=== PATIENT | male | born 1960 | race African-American/Black ===

== ENCOUNTER 2018-07-21 14:47 | Emergency (ER) | payer MEDICAID ==
[~2018-07-21] VITALS: Ht 172.7 cm; Wt 87.4 kg
[2018-07-21] MEDS ORDERED: ALBUTEROL (0.083%) 2.5MG/3ML NEB HHN STA (15:19)
[2018-07-21] MEDS ORDERED: IPRATROPIUM BROMIDE (0.02%) 0.5MG/2.5ML NEB HHN STA (15:19)
[2018-07-21] MEDS ORDERED: METHYLPREDNISOLONE SOD SUCC 125 MG/2 ML VIAL IV STA (15:19)
[2018-07-21 15:46] LABS: CHLORIDE 95 mEq/L (98-107)
[2018-07-21 15:49] LABS: ETHANOL BLOOD < 10 mg/dL; INR 1.1; PARTIAL THROMBOPLASTIN TIME 33.6 sec (23.4-31.0); PROTHROMBIN TIME 10.9 sec (9.1-11.1)
[2018-07-21 15:52] LABS: EOSINOPHILS % 2.2 % (0.0-5.0); HEMATOCRIT. 43.5 % (42.0-52.0); HEMOGLOBIN. 14.8 g/dL (14.0-18.0); LYMPHOCYTES % 23.7 % (20.0-50.0); MEAN CORPUSCULAR HEMOGLOBIN 30.6 pg (28.0-32.0); MEAN CORPUSCULAR VOLUME 89.9 fL (80.0-94.0); MONOCYTES % 10.9 % (2.0-8.0); NEUTROPHILS % 62.2 % (40.0-76.0); PLATELET 158 x1000/uL (130-400); RED BLOOD CELL COUNT 4.84 mill/uL (4.7-6.1); RED CELL DISTRIBUTION WIDTH 13.9 % (11.6-14.6)
[2018-07-21 15:53] LABS: LDL CHOLESTEROL 102 mg/dL (5-100)
[2018-07-21] MEDS ORDERED: IOHEXOL-350 100 ML BOTTLE ONE (16:19)
[2018-07-21] MEDS ORDERED: ASPIRIN 325MG EC TABLET PO ONE (17:15)
[2018-07-21] MEDS ORDERED: POTASSIUM CHLORIDE 20MEQ TABLET SR PO ONE (17:45)
[2018-07-21] MEDS ORDERED: DILTIAZEM HCL 5MG/ML 5ML VIAL IV ONE (18:15)
[2018-07-21] MEDS ORDERED: DILTIAZEM HCL 60MG TABLET PO ONE (18:45)
[2018-07-21] MEDS ORDERED: DILTIAZEM HCL 125 MG in DEXT 5% WATER 100 ML IV ONE (20:00)
[2018-07-21 20:04] VITALS: BP 124/80
[2018-07-21] MEDS ORDERED: DILTIAZEM HCL 125 MG in DEXT 5% WATER 100 ML IV SCH (20:30)
[2018-08-02] MEDS ORDERED: APIX5TAB PO (13:39)
[2018-08-02] MEDS ORDERED: DILT30TA38 PO (13:39)
== END 2018-07-21 20:48 | disposition short-term general hospital (02) ==
LOC: ER 14:47
DX: I63.9 Cerebral infarction, unspecified (principal); I48.91 Unspecified atrial fibrillation; J45.901 Unspecified asthma with (acute) exacerbation; I10 Essential (primary) hypertension; F17.210 Nicotine dependence, cigarettes, uncomplicated
CPT/HCPCS: 36415; 70450; 70496; 70498; 71045; 80053; 80320; 82962; 83721; 84484; 85025; 85610; 85730; 93005; 94644; 96374; 96375; 99291; J2930; J3490; J7060; J7611; Q9967; G0480

== ENCOUNTER 2018-07-25 05:47 | Inpatient (IN) | payer MEDICAID ==
[~2018-07-25] VITALS: Ht 173.5 cm; Wt 85.0 kg
[2018-07-25] MEDS ORDERED: ONDANSETRON HCL 4MG/2ML INJ IV STA (06:31)
[2018-07-25] MEDS ORDERED: MORPHINE SULFATE 4 MG/ML CPJ (NOT FOR IM USE) IV STA (06:31)
[2018-07-25] MEDS ORDERED: NITROGLYCERIN OINT 1GM/INCH UDPKT TD ONE (06:45)
[2018-07-25] MEDS ORDERED: ASPIRIN 81MG TABLET PO ONE (06:45)
[2018-07-25 06:56] LABS: HEMATOCRIT. 33.1 % (42.0-52.0); HEMOGLOBIN. 10.9 g/dL (14.0-18.0); MEAN CORPUSCULAR HEMOGLOBIN 29.8 pg (28.0-32.0); MEAN CORPUSCULAR VOLUME 90.1 fL (80.0-94.0); MEAN PLATELET VOLUME 8.9 fl (7.4-10.4); PLATELET 270 x1000/uL (130-400); RED BLOOD CELL COUNT 3.67 mill/uL (4.7-6.1); RED CELL DISTRIBUTION WIDTH 13.7 % (11.6-14.6)
[2018-07-25 07:00] LABS: CHLORIDE 97 mEq/L (98-107)
[2018-07-25 07:04] LABS: INR 1.3; PARTIAL THROMBOPLASTIN TIME 35.7 sec (23.4-31.0); PROTHROMBIN TIME 12.7 sec (9.1-11.1)
[2018-07-25 07:05] LABS: ETHANOL BLOOD < 10 mg/dL
[2018-07-25 08:03] LABS: PLATELET ESTIMATE NORMAL
[2018-07-25 11:44] LABS: CLARITY URINE CLOUDY (CLEAR); COLOR URINE DARK YELLOW (YELLOW); KETONES URINE TRACE (NEGATIVE); LEUKOCYTE ESTERASE URINE 1+ (NEGATIVE); NITRITE URINE NEGATIVE (NEGATIVE); OCCULT BLOOD URINE NEGATIVE (NEGATIVE); PROTEIN URINE NEGATIVE (NEGATIVE); SPECIFIC GRAVITY URINE 1.018 (1.005-1.030)
[2018-07-25 11:58] LABS: *AMPHETAMINES SCREEN URINE NEGATIVE (NEGATIVE); *BARBITURATES SCREEN URINE NEGATIVE (NEGATIVE); *BENZODIAZEPINES SCREEN URINE NEGATIVE (NEGATIVE); *COCAINE SCREEN URINE NEGATIVE (NEGATIVE)
[2018-07-25 11:59] LABS: CANNABINOID URINE SCREEN PRESUMTIVE POSITIVE (NEGATIVE); METHADONE URINE SCREEN NEGATIVE (NEGATIVE); OPIATES URINE SCREEN PRESUMTIVE POSITIVE (NEGATIVE); PHENCYCLIDINE URINE SCREEN NEGATIVE (NEGATIVE)
[2018-07-25] MEDS ORDERED: IOHEXOL-350 100 ML BOTTLE ONE ×2 (17:50→20:00)
[2018-07-25] MEDS ORDERED: DIPHENHYDRAMINE 50MG/ML VIAL IV PRN (18:00)
[2018-07-25] MEDS ORDERED: IPRATROPIUM/ALBUTEROL 0.5-3(2.5)MG/3ML NEB INH PRN (18:00)
[2018-07-25] MEDS ORDERED: PIPERACILLIN/TAZ 3.375G PREMIX 50 ML IV NR (18:15)
[2018-07-25] MEDS: DEXT 5%/LACTATED RINGERS 1,000 ML IV SCH (18:21)
[2018-07-25] MEDS ORDERED: DIATR MEGLU/DIATRIZOATE SOLN 120ML ONE (18:40)
[2018-07-25] MEDS: ONDANSETRON HCL 4MG/2ML INJ IV PRN (18:54)
[2018-07-25] MEDS ORDERED: PANTOPRAZOLE SODIUM 40 MG/VIAL IV NR (19:15)
[2018-07-25] MEDS: IPRATROPIUM/ALBUTEROL 0.5-3(2.5)MG/3ML NEB INH SCH (21:10)
[2018-07-25 23:20] LABS: CREATINE KINASE 48 IU/L (39-308)
[2018-07-25 23:21] LABS: CREATINE KINASE MB FRACTION < 1.0 ng/mL (0.5-3.6)
[2018-07-25 23:30] VITALS: BP 144/72
[2018-07-25] MEDS: SODIUM CHLORIDE 0.9% INJ 3ML FLUSH IVF SCH (23:56)
[2018-07-26] VITALS (20 sets, daily range): BP systolic 98–166; BP diastolic 51–78
[2018-07-26] MEDS: DEXT 5%/LACTATED RINGERS 1,000 ML IV SCH ×4 (01:23→20:40)
[2018-07-26] MEDS: PIPERACILLIN/TAZ 3.375G PREMIX 50 ML IV SCH ×3 (01:23→17:11)
[2018-07-26] MEDS: SODIUM CHLORIDE 0.9% INJ 3ML FLUSH IVF SCH ×3 (06:40→22:30)
[2018-07-26 07:10] LABS: CREATINE KINASE 45 IU/L (39-308)
[2018-07-26 07:11] LABS: CREATINE KINASE MB FRACTION < 1.0 ng/mL (0.5-3.6)
[2018-07-26 07:35] LABS: BASOPHILS % 0.6 % (0.0-2.0); CHLORIDE 97 mEq/L (98-107); EOSINOPHILS % 1.7 % (0.0-5.0); HEMATOCRIT. 24.7 % (42.0-52.0); HEMOGLOBIN. 8.3 g/dL (14.0-18.0); LYMPHOCYTES % 15.5 % (20.0-50.0); MEAN CORPUSCULAR HEMOGLOBIN 30.2 pg (28.0-32.0); MEAN CORPUSCULAR VOLUME 89.5 fL (80.0-94.0); MEAN PLATELET VOLUME 8.8 fl (7.4-10.4); NEUTROPHILS % 74.2 % (40.0-76.0); PLATELET 236 x1000/uL (130-400); RED BLOOD CELL COUNT 2.76 mill/uL (4.7-6.1); RED CELL DISTRIBUTION WIDTH 13.8 % (11.6-14.6)
[2018-07-26] MEDS: PANTOPRAZOLE SODIUM 40 MG/VIAL IV SCH (09:01)
[2018-07-26 09:29] LABS: INR 1.1; PROTHROMBIN TIME 11.4 sec (9.1-11.1)
[2018-07-26] MEDS ORDERED: POTASSIUM CHLORIDE INJ 40 MEQ in DEXT 5% WATER 250 ML IV NR (09:30)
[2018-07-26] MEDS ORDERED: FENTANYL CITRATE/PF 50MCG/ML 2ML VIAL ONE (11:05)
[2018-07-26] MEDS ORDERED: LIDOCAINE HCL 1% 20ML VIAL (Pyxis) INJ ONE (11:07)
[2018-07-26] MEDS ORDERED: SODIUM BICARBONATE 4% (2.4MEQ) 5ML VIAL IV ONE (11:08)
[2018-07-26] MEDS ORDERED: FENTANYL CITRATE/PF 50MCG/ML 2ML VIAL IV NR (11:10)
[2018-07-26] MEDS ORDERED: FENTANYL CITRATE/PF 50MCG/ML 2ML VIAL IV ONE (11:20)
[2018-07-26] MEDS ORDERED: MORPHINE SULFATE 4 MG/ML CPJ (NOT FOR IM USE) IV PRN (12:00)
[2018-07-26] MEDS ORDERED: ONDANSETRON HCL 4MG/2ML INJ IV PRN (12:00)
[2018-07-26] MEDS: FAMOTIDINE 20MG/2ML VIAL IV SCH (12:59)
[2018-07-26] MEDS: IPRATROPIUM/ALBUTEROL 0.5-3(2.5)MG/3ML NEB INH SCH ×3 (14:37→20:30)
[2018-07-26] MEDS: NICOTINE 14MG PATCH TD SCH (15:17)
[2018-07-26 22:07] LABS: HEMATOCRIT 25.1 % (42.0-52.0); HEMOGLOBIN 8.6 g/dL (14.0-18.0)
[2018-07-27] VITALS (20 sets, daily range): BP systolic 91–134; BP diastolic 44–79
[2018-07-27] MEDS: IPRATROPIUM/ALBUTEROL 0.5-3(2.5)MG/3ML NEB INH SCH ×4 (00:46→20:33)
[2018-07-27] MEDS: PIPERACILLIN/TAZ 3.375G PREMIX 50 ML IV SCH ×4 (02:05→18:54)
[2018-07-27] MEDS: DEXT 5%/LACTATED RINGERS 1,000 ML IV SCH ×3 (02:52→18:12)
[2018-07-27] MEDS: SODIUM CHLORIDE 0.9% INJ 3ML FLUSH IVF SCH ×3 (06:00→21:42)
[2018-07-27 08:03] LABS: HEMATOCRIT 23.2 % (42.0-52.0); HEMOGLOBIN 7.8 g/dL (14.0-18.0)
[2018-07-27] MEDS: PANTOPRAZOLE SODIUM 40 MG/VIAL IV SCH (08:30)
[2018-07-27] MEDS: FAMOTIDINE 20MG/2ML VIAL IV SCH (08:30)
[2018-07-27] MEDS: NICOTINE 14MG PATCH TD SCH (08:30)
[2018-07-27] MEDS ORDERED: PANTOPRAZOLE SODIUM 40 MG/VIAL IV SCH (13:15)
[2018-07-27 16:43] LABS: BASOPHILS % 0.7 % (0.0-2.0); EOSINOPHILS % 2.3 % (0.0-5.0); HEMATOCRIT. 26.3 % (42.0-52.0); HEMOGLOBIN. 8.9 g/dL (14.0-18.0); MEAN CORPUSCULAR HEMOGLOBIN 30.4 pg (28.0-32.0); MEAN CORPUSCULAR VOLUME 89.4 fL (80.0-94.0); MEAN PLATELET VOLUME 8.3 fl (7.4-10.4); MONOCYTES % 7.8 % (2.0-8.0); NEUTROPHILS % 72.2 % (40.0-76.0); PLATELET 303 x1000/uL (130-400); RED BLOOD CELL COUNT 2.95 mill/uL (4.7-6.1); RED CELL DISTRIBUTION WIDTH 14.1 % (11.6-14.6)
[2018-07-27 21:27] LABS: HEMATOCRIT 24.5 % (42.0-52.0); HEMOGLOBIN 8.6 g/dL (14.0-18.0)
[2018-07-28] VITALS (21 sets, daily range): BP systolic 120–148; BP diastolic 42–89
[2018-07-28] MEDS: PIPERACILLIN/TAZ 3.375G PREMIX 50 ML IV SCH ×4 (01:15→18:31)
[2018-07-28] MEDS: DEXT 5%/LACTATED RINGERS 1,000 ML IV SCH ×2 (01:41→12:04)
[2018-07-28] MEDS: IPRATROPIUM/ALBUTEROL 0.5-3(2.5)MG/3ML NEB INH SCH ×4 (02:29→20:08)
[2018-07-28] MEDS: SODIUM CHLORIDE 0.9% INJ 3ML FLUSH IVF SCH ×2 (05:42→14:00)
[2018-07-28 06:39] LABS: HEMATOCRIT 25.7 % (42.0-52.0); HEMOGLOBIN 8.8 g/dL (14.0-18.0); MEAN CORPUSCULAR HEMOGLOBIN 30.3 pg (28.0-32.0); MEAN CORPUSCULAR VOLUME 88.8 fL (80.0-94.0); PLATELET 342 x1000/uL (130-400); RED BLOOD CELL COUNT 2.89 mill/uL (4.7-6.1); RED CELL DISTRIBUTION WIDTH 14.2 % (11.6-14.6)
[2018-07-28 06:59] LABS: CHLORIDE 103 mEq/L (98-107)
[2018-07-28] MEDS: PANTOPRAZOLE SODIUM 40 MG/VIAL IV SCH (09:51)
[2018-07-28] MEDS: NICOTINE 14MG PATCH TD SCH (09:53)
[2018-07-28] MEDS ORDERED: GELATIN SPONGE,ABSORBABLE 12-7MM SPONGE ONE (10:46)
[2018-07-28] MEDS ORDERED: BACITRACIN 15GM TUBE TOP ONE (10:46)
[2018-07-28] MEDS ORDERED: THROMBIN (BOVINE) 5000 UNITS/VIAL TOP ONE (10:47)
[2018-07-28] MEDS ORDERED: HEPARIN SODIUM 1,000 UNIT/1ML VIAL IV ONE (10:47)
[2018-07-28] MEDS ORDERED: BUPIVACAINE HCL/PF 0.5% (5MG/ML) 10ML ONE ×2 (10:47→10:48)
[2018-07-28] MEDS ORDERED: LIDOCAINE HCL/PF 1% 10 MG/ML 5ML VIAL ONE ×2 (10:48→12:40)
[2018-07-28] MEDS ORDERED: BACITRACIN 50,000 UNITS/VIAL ONE (10:51)
[2018-07-28] MEDS ORDERED: NORMAL SALINE 0.9% 10 ML SYR ONE (10:51)
[2018-07-28] MEDS ORDERED: POTASSIUM CHLORIDE INJ 40 MEQ in DEXT 5% WATER 250 ML IV SCH (12:00)
[2018-07-28] MEDS ORDERED: NICARDIPINE 40MG/200ML PREMIX 200 ML IV SCH (12:30)
[2018-07-28] MEDS ORDERED: NITROGLYCERIN 50MG PREMIX 250 ML IV ONE (12:36)
[2018-07-28] MEDS ORDERED: CALCIUM CHLORIDE 1GM/10ML SYR IV ONE (12:36)
[2018-07-28] MEDS ORDERED: MIDAZOLAM HCL 2 MG/2 ML VIAL ONE (12:39)
[2018-07-28] MEDS ORDERED: ROCURONIUM BROMIDE 10MG/ML VIAL 5ML IV ONE (12:39)
[2018-07-28] MEDS ORDERED: PROPOFOL 200MG/20ML VIAL IV ONE (12:39)
[2018-07-28] MEDS ORDERED: NEOSTIGMINE METHYLSULFATE 1MG/ML 10 ML VIAL ONE (12:39)
[2018-07-28] MEDS ORDERED: FENTANYL CITRATE/PF 50MCG/ML 2ML VIAL ONE ×2 (12:39→13:14)
[2018-07-28] MEDS ORDERED: SODIUM CHLORIDE 0.9% 10ML VIAL ONE (12:40)
[2018-07-28] MEDS ORDERED: METOCLOPRAMIDE HCL 10MG/2ML VIAL ONE (12:40)
[2018-07-28] MEDS ORDERED: GLYCOPYRROLATE 0.2 MG/ML 2ML VIAL ONE (12:40)
[2018-07-28] MEDS ORDERED: EPHEDRINE SULFATE 50MG/ML VIAL ONE (12:40)
[2018-07-28] MEDS ORDERED: SUCCINYLCHOLINE CHLORIDE 200MG/10ML IV ONE (12:40)
[2018-07-28] MEDS ORDERED: DEXAMETHASONE 4MG/ML 1ML VIAL ONE (12:40)
[2018-07-28] MEDS ORDERED: PHENYLEPHRINE HCL 10 MG/ML 1ML (IV VIAL) IV ONE (12:40)
[2018-07-28] MEDS ORDERED: ONDANSETRON HCL 4MG/2ML INJ ONE (12:40)
[2018-07-28] MEDS ORDERED: HEPARIN 1000 UNITS/ML 10ML ONE (13:12)
[2018-07-28] MEDS ORDERED: LABETALOL HCL 5MG/ML VIAL 20ML IV ONE (13:43)
[2018-07-28] MEDS ORDERED: ESMOLOL HCL 10MG/ML 10ML VIAL IV ONE (13:49)
[2018-07-28] MEDS ORDERED: SODIUM CHLORIDE 0.9% 1,000 ML IV ONE (14:04)
[2018-07-28] MEDS ORDERED: MORPHINE SULFATE 4 MG/ML CPJ (NOT FOR IM USE) IV PRN (14:15)
[2018-07-28] MEDS ORDERED: HYDROMORPHONE HCL/PF 2MG/ML CPJ IV PRN (14:15)
[2018-07-28] MEDS ORDERED: ONDANSETRON HCL 4MG/2ML INJ IV PRN (14:15)
[2018-07-28 16:47] LABS: HEMATOCRIT 29.2 % (42.0-52.0); HEMOGLOBIN 9.8 g/dL (14.0-18.0); MEAN CORPUSCULAR HEMOGLOBIN 29.9 pg (28.0-32.0); PLATELET 371 x1000/uL (130-400); RED BLOOD CELL COUNT 3.28 mill/uL (4.7-6.1); RED CELL DISTRIBUTION WIDTH 14.1 % (11.6-14.6)
[2018-07-28 16:49] LABS: CHLORIDE 104 mEq/L (98-107)
[2018-07-28] MEDS: MORPHINE SULFATE 4 MG/ML CPJ (NOT FOR IM USE) IV PRN (19:51)
[2018-07-28] MEDS ORDERED: NICARDIPINE 50 MG in SODIUM CHLORIDE 0.9% 230 ML IV PRN (23:00)
[2018-07-29] VITALS (50 sets, daily range): BP systolic 109–177; BP diastolic 46–112
[2018-07-29] MEDS: IPRATROPIUM/ALBUTEROL 0.5-3(2.5)MG/3ML NEB INH SCH ×4 (01:45→20:43)
[2018-07-29] MEDS: PIPERACILLIN/TAZ 3.375G PREMIX 50 ML IV SCH ×3 (06:12→18:52)
[2018-07-29 06:25] LABS: BASOPHILS % 0.6 % (0.0-2.0); EOSINOPHILS % 0.1 % (0.0-5.0); HEMATOCRIT. 21.6 % (42.0-52.0); HEMOGLOBIN. 7.2 g/dL (14.0-18.0); LYMPHOCYTES % 13.1 % (20.0-50.0); MEAN CORPUSCULAR VOLUME 89.7 fL (80.0-94.0); MEAN PLATELET VOLUME 8.2 fl (7.4-10.4); MONOCYTES % 5.6 % (2.0-8.0); NEUTROPHILS % 80.6 % (40.0-76.0); PLATELET 293 x1000/uL (130-400); RED BLOOD CELL COUNT 2.41 mill/uL (4.7-6.1); RED CELL DISTRIBUTION WIDTH 14.3 % (11.6-14.6)
[2018-07-29 08:29] LABS: CHLORIDE 103 mEq/L (98-107)
[2018-07-29] MEDS: PANTOPRAZOLE SODIUM 40 MG/VIAL IV SCH (10:19)
[2018-07-29] MEDS: NICOTINE 14MG PATCH TD SCH (10:19)
[2018-07-29] MEDS: SODIUM CHLORIDE 0.9% INJ 3ML FLUSH IVF SCH (20:34)
[2018-07-30] VITALS (11 sets, daily range): BP systolic 110–153; BP diastolic 58–86
[2018-07-30] MEDS: PIPERACILLIN/TAZ 3.375G PREMIX 50 ML IV SCH ×4 (00:38→19:51)
[2018-07-30] MEDS: IPRATROPIUM/ALBUTEROL 0.5-3(2.5)MG/3ML NEB INH SCH ×4 (02:00→21:13)
[2018-07-30] MEDS: SODIUM CHLORIDE 0.9% INJ 3ML FLUSH IVF SCH ×2 (06:04→21:47)
[2018-07-30] MEDS: NICOTINE 14MG PATCH TD SCH (10:34)
[2018-07-30] MEDS: PANTOPRAZOLE SODIUM 40 MG/VIAL IV SCH (10:34)
[2018-07-30] MEDS ORDERED: HYDRALAZINE 20MG/ML VIAL IV PRN (14:30)
[2018-07-31] VITALS: BP 121/62
[2018-07-31] MEDS: DEXT 5%/0.9% NACL 1,000 ML IV SCH ×2 (00:12→12:51)
[2018-07-31] MEDS: PIPERACILLIN/TAZ 3.375G PREMIX 50 ML IV SCH ×4 (01:04→18:30)
[2018-07-31] MEDS: IPRATROPIUM/ALBUTEROL 0.5-3(2.5)MG/3ML NEB INH SCH ×4 (01:55→20:34)
[2018-07-31 04:00] VITALS: BP 137/79
[2018-07-31] MEDS: SODIUM CHLORIDE 0.9% INJ 3ML FLUSH IVF SCH ×3 (06:28→21:37)
[2018-07-31 08:00] VITALS: BP 140/82
[2018-07-31] MEDS: PANTOPRAZOLE SODIUM 40 MG/VIAL IV SCH (08:51)
[2018-07-31] MEDS: NICOTINE 14MG PATCH TD SCH (08:52)
[2018-07-31 11:08] LABS: BASOPHILS % 0.6 % (0.0-2.0); EOSINOPHILS % 2.2 % (0.0-5.0); HEMATOCRIT. 37.1 % (42.0-52.0); HEMOGLOBIN. 12.3 g/dL (14.0-18.0); LYMPHOCYTES % 20.2 % (20.0-50.0); MEAN CORPUSCULAR HEMOGLOBIN 29.7 pg (28.0-32.0); MEAN CORPUSCULAR VOLUME 89.6 fL (80.0-94.0); MEAN PLATELET VOLUME 7.5 fl (7.4-10.4); MONOCYTES % 6.9 % (2.0-8.0); NEUTROPHILS % 70.1 % (40.0-76.0); PLATELET 450 x1000/uL (130-400); RED BLOOD CELL COUNT 4.14 mill/uL (4.7-6.1); RED CELL DISTRIBUTION WIDTH 14.2 % (11.6-14.6)
[2018-07-31 11:29] LABS: CHLORIDE 101 mEq/L (98-107)
[2018-07-31 12:00] VITALS: BP 156/85
[2018-07-31 16:00] VITALS: BP 164/87
[2018-08-01] VITALS: BP 112/62
[2018-08-01] MEDS: PIPERACILLIN/TAZ 3.375G PREMIX 50 ML IV SCH ×3 (01:13→12:54)
[2018-08-01] MEDS: MORPHINE SULFATE 4 MG/ML CPJ (NOT FOR IM USE) IV PRN (01:29)
[2018-08-01] MEDS: IPRATROPIUM/ALBUTEROL 0.5-3(2.5)MG/3ML NEB INH SCH ×4 (02:25→21:21)
[2018-08-01 04:00] VITALS: BP 125/78
[2018-08-01] MEDS: SODIUM CHLORIDE 0.9% INJ 3ML FLUSH IVF SCH ×3 (06:03→22:51)
[2018-08-01 08:00] VITALS: BP 104/57
[2018-08-01] MEDS: PANTOPRAZOLE SODIUM 40 MG/VIAL IV SCH (08:55)
[2018-08-01] MEDS: NICOTINE 14MG PATCH TD SCH (08:57)
[2018-08-01] MEDS ORDERED: AMLODIPINE 5MG TABLET PO SCH (09:00)
[2018-08-01 12:00] VITALS: BP 119/72
[2018-08-01 16:00] VITALS: BP 110/77
[2018-08-01 17:29] LABS: BASOPHILS % 0.6 % (0.0-2.0); EOSINOPHILS % 2.6 % (0.0-5.0); HEMATOCRIT. 35.7 % (42.0-52.0); HEMOGLOBIN. 11.9 g/dL (14.0-18.0); LYMPHOCYTES % 19.2 % (20.0-50.0); MEAN CORPUSCULAR HEMOGLOBIN 29.8 pg (28.0-32.0); MEAN CORPUSCULAR VOLUME 89.3 fL (80.0-94.0); MEAN PLATELET VOLUME 7.7 fl (7.4-10.4); MONOCYTES % 6.3 % (2.0-8.0); NEUTROPHILS % 71.3 % (40.0-76.0); PLATELET 454 x1000/uL (130-400); RED CELL DISTRIBUTION WIDTH 14.2 % (11.6-14.6)
[2018-08-01] MEDS ORDERED: DILTIAZEM HCL 5MG/ML 5ML VIAL IV NR (17:30)
[2018-08-01 17:32] LABS: CHLORIDE 100 mEq/L (98-107)
[2018-08-01] MEDS: ONDANSETRON HCL 4MG/2ML INJ IV PRN (18:00)
[2018-08-01 18:05] LABS: BG BASE EXCESS 2.4 mmol/L (-2.0-2.0); BG CARBOXYHEMOGLOBIN 0.1 % (0.5-1.5); BG DEOXYHEMOGLOBIN 6.3 % (0.0-5.0); BG FRACTION INSPIRED OXYGEN 21; BG HCO3 ACT 26.2 mmol/L (22.0-26.0); BG METHEMOGLOBIN 0.1 % (0.0-1.5); BG OXYGEN SATURATION 93.7 % (92.0-98.5); BG OXYHEMOGLOBIN 93.5 % (94.0-97.0); BG PH 7.457 (7.350-7.450); BG PO2 70.4 mmHg (75.0-100.0); BG SAMPLE SITE RIGHT RADIAL; BG TOTAL HEMOGLOBIN 12.2 g/dL (12.0-18.0); BG VENT MODE ROOM AIR
[2018-08-01 20:00] VITALS: BP 108/62
[2018-08-01] MEDS: METOPROLOL TARTRATE 25MG TABLET PO SCH (21:00)
[2018-08-01] MEDS ORDERED: DIGOXIN 500MCG/2ML AMP IV NR (22:00)
[2018-08-01] MEDS: ENOXAPARIN 80MG/0.8ML SYR SUBCUT SCH ×2 (22:51→23:00)
[2018-08-02] VITALS (7 sets, daily range): BP systolic 101–125; BP diastolic 63–77
[2018-08-02] MEDS: IPRATROPIUM/ALBUTEROL 0.5-3(2.5)MG/3ML NEB INH SCH ×3 (02:51→14:26)
[2018-08-02] MEDS: DILTIAZEM HCL 30MG TABLET PO SCH ×4 (06:22→18:24)
[2018-08-02] MEDS: SODIUM CHLORIDE 0.9% INJ 3ML FLUSH IVF SCH ×3 (06:22→21:10)
[2018-08-02] MEDS: PANTOPRAZOLE SODIUM 40 MG/VIAL IV SCH (09:00)
[2018-08-02] MEDS ORDERED: POTASSIUM CHLORIDE 20MEQ TABLET SR PO SCH ×2 (09:15→11:30)
[2018-08-02] MEDS: ENOXAPARIN 80MG/0.8ML SYR SUBCUT SCH ×2 (10:19→10:23)
[2018-08-02] MEDS: METOPROLOL TARTRATE 25MG TABLET PO SCH (10:20)
[2018-08-02] MEDS: NICOTINE 14MG PATCH TD SCH (10:21)
[2018-08-02] MEDS ORDERED: DILT30TA38 PO (13:39)
[2018-08-02] MEDS ORDERED: APIX5TAB PO (13:39)
[2018-08-02] MEDS ORDERED: POTASSIUM CHLORIDE 20MEQ TABLET SR PO ONE (13:45)
[2018-08-02] MEDS ORDERED: BENAZEPRIL 5MG TABLET PO SCH (13:45)
[2018-08-02] MEDS ORDERED: METOPROLOL TARTRATE 25MG TABLET PO SCH (14:00)
[2018-08-02] MEDS ORDERED: ATORVASTATIN CALCIUM 10MG TABLET PO SCH (21:00)
[2018-08-02] MEDS ORDERED: APIXABAN 5 MG TABLET PO SCH (21:00)
== END 2018-08-02 22:52 | disposition home health service (06) | DRG 24 ==
LOC: ER 05:47 → 5EST 07:37 → EDBEDREQ 07:44 → EDBEDREQSVC 20:00 → ENRESERV 21:09 → CVICU 07-28 15:35 → 5WST 07-30 03:45
PROVIDERS: ADMIT Family Medicine; ATTEND Family Medicine
PROC: 0W9G3ZZ Drainage of Peritoneal Cavity, Percutaneous Approach (ICD-10-PCS; 2018-07-26)
PROC: 30233N1 Transfusion of Nonautologous Red Blood Cells into Peripheral Vein, Percutaneous Approach (ICD-10-PCS; 2018-07-27)
PROC: 03CJ0ZZ Extirpation of Matter from Left Common Carotid Artery, Open Approach (ICD-10-PCS; 2018-07-28)
PROC: 03CL0ZZ Extirpation of Matter from Left Internal Carotid Artery, Open Approach (ICD-10-PCS; 2018-07-28)
PROC: 03CN0ZZ Extirpation of Matter from Left External Carotid Artery, Open Approach (ICD-10-PCS; 2018-07-28)
PROC: 0HBRXZZ Excision of Toe Nail, External Approach (ICD-10-PCS; principal; 2018-08-01)
PROC: 0HBRXZZ Excision of Toe Nail, External Approach (ICD-10-PCS; 2018-08-01)
PROC: 0HBRXZZ Excision of Toe Nail, External Approach (ICD-10-PCS; 2018-08-01)
PROC: 0HBRXZZ Excision of Toe Nail, External Approach (ICD-10-PCS; 2018-08-01)
PROC: 0HBRXZZ Excision of Toe Nail, External Approach (ICD-10-PCS; 2018-08-01)
PROC: 0HBRXZZ Excision of Toe Nail, External Approach (ICD-10-PCS; 2018-08-01)
PROC: 0HBRXZZ Excision of Toe Nail, External Approach (ICD-10-PCS; 2018-08-01)
PROC: 0HBRXZZ Excision of Toe Nail, External Approach (ICD-10-PCS; 2018-08-01)
PROC: 0HBRXZZ Excision of Toe Nail, External Approach (ICD-10-PCS; 2018-08-01)
PROC: 0HBRXZZ Excision of Toe Nail, External Approach (ICD-10-PCS; 2018-08-01)
PROC: 0JDQ0ZZ Extraction of Right Foot Subcutaneous Tissue and Fascia, Open Approach (ICD-10-PCS; 2018-08-01)
DX: I65.22 Occlusion and stenosis of left carotid artery (principal); K63.1 Perforation of intestine (nontraumatic); K65.1 Peritoneal abscess; K66.8 Other specified disorders of peritoneum; K92.2 Gastrointestinal hemorrhage, unspecified; B35.1 Tinea unguium; I48.91 Unspecified atrial fibrillation; D50.9 Iron deficiency anemia, unspecified; I25.10 Atherosclerotic heart disease of native coronary artery without angina pectoris; E78.5 Hyperlipidemia, unspecified; E87.6 Hypokalemia; J44.9 Chronic obstructive pulmonary disease, unspecified; N18.9 Chronic kidney disease, unspecified; I12.9 Hypertensive chronic kidney disease with stage 1 through stage 4 chronic kidney disease, or unspecified chronic kidney disease; L60.0 Ingrowing nail; M20.40 Other hammer toe(s) (acquired), unspecified foot; L57.0 Actinic keratosis; F12.10 Cannabis abuse, uncomplicated; F10.10 Alcohol abuse, uncomplicated; F17.210 Nicotine dependence, cigarettes, uncomplicated; Z86.73 Personal history of transient ischemic attack (TIA), and cerebral infarction without residual deficits
CPT/HCPCS: 36415; 36600; 49180; 71045; 71275; 74176; 77012; 80048; 80061; 80305; 80320; 82375; 82550; 82553; 82805; 82962; 83036; 83735; 83880; 84132; 84484; 85014; 85018; 85027; 85379; 86850; 86900; 86920; 88304; 88311; 93005; 93306; 93880; 93970; 94640; 96374; 97162; 97166; 99285; C1729; C1769; C9113; J0330; J1100; J1160; J1170; J1644; J1650; J2250; J2270; J2370; J2405; J2543; J2704; J2710; J2765; J3010; J3480; J3490; J7042; J7050; J7060; J7620; P9016; Q9963; Q9967; G0480

== ENCOUNTER 2018-08-25 08:02 | Inpatient (IN) | payer MEDICAID ==
[~2018-08-25] VITALS: Ht 175.3 cm; Wt 85.3 kg
[~2018-08-25 08:02] MED LIST: APIX5TAB PO; DILT30TA38 PO
[2018-08-25] MEDS ORDERED: MORPHINE SULFATE 4 MG/ML CPJ (NOT FOR IM USE) IV STA (08:29)
[2018-08-25 10:13] LABS: BASOPHILS % 1.2 % (0.0-2.0); CHLORIDE 104 mEq/L (98-107); EOSINOPHILS % 6.1 % (0.0-5.0); HEMATOCRIT. 38.3 % (42.0-52.0); HEMOGLOBIN. 13.1 g/dL (14.0-18.0); LYMPHOCYTES % 43.6 % (20.0-50.0); MEAN CORPUSCULAR HEMOGLOBIN 30.3 pg (28.0-32.0); MEAN CORPUSCULAR VOLUME 88.8 fL (80.0-94.0); MONOCYTES % 10.5 % (2.0-8.0); NEUTROPHILS % 38.6 % (40.0-76.0); PLATELET 181 x1000/uL (130-400); RED BLOOD CELL COUNT 4.31 mill/uL (4.7-6.1); RED CELL DISTRIBUTION WIDTH 14.8 % (11.6-14.6)
[2018-08-25] MEDS ORDERED: ATOR-2 MT (10:43)
[2018-08-25] MEDS ORDERED: NICO-645 TP (11:26)
[2018-08-25] MEDS ORDERED: CLONIDINE 0.1MG TABLET PO PRN (12:30)
[2018-08-25 16:00] VITALS: BP 168/86
[2018-08-25 17:31] VITALS: BP 168/86
[2018-08-25 20:00] VITALS: BP 98/74
[2018-08-25] MEDS: HYDROCODONE/ACETAMINOPHEN 10/325MG TABLET PO PRN (20:53)
[2018-08-26] VITALS: BP 166/81
[2018-08-26] MEDS ORDERED: REGADENOSON 0.4 MG/5 ML IV SCH (00:30)
[2018-08-26] MEDS ORDERED: GUAIFENESIN 200MG/10ML SUGAR FREE UDC PO PRN (00:30)
[2018-08-26] MEDS ORDERED: ONDANSETRON HCL 4MG/2ML INJ IV PRN (00:30)
[2018-08-26] MEDS ORDERED: ACETAMINOPHEN 325MG TABLET PO PRN (00:30)
[2018-08-26] MEDS ORDERED: CLONIDINE 0.1MG TABLET PO PRN (00:30)
[2018-08-26] MEDS ORDERED: DIPHENHYDRAMINE 50MG/ML VIAL IV PRN (00:30)
[2018-08-26] MEDS ORDERED: IPRATROPIUM/ALBUTEROL 0.5-3(2.5)MG/3ML NEB INH PRN (00:30)
[2018-08-26] MEDS: TEMAZEPAM 15MG CAPSULE PO PRN ×2 (01:48→22:36)
[2018-08-26] MEDS: IPRATROPIUM/ALBUTEROL 0.5-3(2.5)MG/3ML NEB HHN SCH ×4 (02:23→20:32)
[2018-08-26 04:00] VITALS: BP 164/82
[2018-08-26] MEDS: SODIUM CHLORIDE 0.9% INJ 3ML FLUSH IVF SCH ×3 (06:33→22:36)
[2018-08-26 07:38] VITALS: BP 151/92
[2018-08-26 07:45] LABS: LDL CHOLESTEROL 79 mg/dL (5-100)
[2018-08-26 07:47] LABS: HDL CHOLESTEROL 27 mg/dL (40-59)
[2018-08-26] MEDS: GUAIFENESIN 600MG ER TABLET PO SCH ×2 (08:05→08:07)
[2018-08-26] MEDS: HYDROCODONE/ACETAMINOPHEN 10/325MG TABLET PO PRN (08:06)
[2018-08-26] MEDS: APIXABAN 5 MG TABLET PO SCH ×2 (08:07→19:36)
[2018-08-26] MEDS: BUDESONIDE 0.5MG/2ML NEB HHN SCH ×2 (08:10→20:32)
[2018-08-26] MEDS: NICOTINE 14MG PATCH TD SCH (08:10)
[2018-08-26] MEDS ORDERED: DIATR MEGLU/DIATRIZOATE SOLN 30ML PO NR (11:30)
[2018-08-26 12:00] VITALS: BP 156/91
[2018-08-26] MEDS ORDERED: REGADENOSON 0.4 MG/5 ML IV ONE (13:25)
[2018-08-26 16:00] VITALS: BP 152/92
[2018-08-26 20:00] VITALS: BP_SYST 133; BP_SYST 83; BP_DIAS 59
[2018-08-26] MEDS ORDERED: ATORVASTATIN CALCIUM 40MG TABLET PO SCH (21:00)
[2018-08-27] VITALS: BP 115/64
[2018-08-27 04:00] VITALS: BP 126/74
[2018-08-27] MEDS: SODIUM CHLORIDE 0.9% INJ 3ML FLUSH IVF SCH ×2 (05:38→18:32)
[2018-08-27] MEDS: IPRATROPIUM/ALBUTEROL 0.5-3(2.5)MG/3ML NEB HHN SCH (07:37)
[2018-08-27] MEDS: BUDESONIDE 0.5MG/2ML NEB HHN SCH (07:37)
[2018-08-27 07:46] VITALS: BP 143/76
[2018-08-27] MEDS ORDERED: IOHEXOL-300 50 ML BOTTLE IV ONE (08:05)
[2018-08-27] MEDS: APIXABAN 5 MG TABLET PO SCH ×2 (09:47→18:31)
[2018-08-27] MEDS: NICOTINE 14MG PATCH TD SCH (09:47)
[2018-08-27] MEDS: GUAIFENESIN 600MG ER TABLET PO SCH (09:47)
[2018-08-27 12:42] VITALS: BP 112/48
[2018-08-27 14:57] VITALS: BP 112/78
[2018-08-27 18:10] VITALS: BP 178/100
== END 2018-08-27 20:30 | disposition home or self-care (01) | DRG 198 ==
LOC: ER 08:02 → 5WST 10:59 → EDBEDREQ 11:03 → EDBEDREQTM 11:03 → ENRESERV 14:28
PROVIDERS: ADMIT Internal Medicine; ATTEND Internal Medicine
DX: R07.89 Other chest pain (principal); I25.10 Atherosclerotic heart disease of native coronary artery without angina pectoris; E11.8 Type 2 diabetes mellitus with unspecified complications; I10 Essential (primary) hypertension; J44.9 Chronic obstructive pulmonary disease, unspecified; Z86.73 Personal history of transient ischemic attack (TIA), and cerebral infarction without residual deficits; E78.00 Pure hypercholesterolemia, unspecified; I48.0 Paroxysmal atrial fibrillation
CPT/HCPCS: 36415; 71045; 74176; 78452; 80061; 83880; 84484; 93005; 93970; 94640; 96374; 99285; A9500; J2270; J2785; J7620; J7626; Q9967

== ENCOUNTER 2018-08-28 01:59 | Emergency (ER) | payer MEDICAID ==
[~2018-08-28] VITALS: Ht 175.3 cm; Wt 84.0 kg
[~2018-08-28 01:59] MED LIST changes: +ATOR-2 MT; +NICO-645 TP
[2018-08-28] MEDS ORDERED: DIATR MEGLU/DIATRIZOATE SOLN 30ML ONE (04:25)
[2018-08-28 06:28] VITALS: BP 113/60
== END 2018-08-28 06:30 | disposition home or self-care (01) ==
LOC: ER 01:59
DX: R10.9 Unspecified abdominal pain (principal); Z88.8 Allergy status to other drugs, medicaments and biological substances
CPT/HCPCS: 74176; 99284; Q9963

== ENCOUNTER 2020-07-20 12:40 | Emergency (ER) | payer MEDICAID ==
[~2020-07-20] VITALS: Ht 175.3 cm; Wt 73.0 kg
[2020-07-20] MEDS ORDERED: APIX2.5T PO (13:15)
[2020-07-20 13:47] LABS: BASOPHILS % 0.8 % (0.0-2.0); EOSINOPHILS % 3.9 % (0.0-5.0); HEMATOCRIT. 39.2 % (42.0-52.0); HEMOGLOBIN. 13.3 g/dL (14.0-18.0); LYMPHOCYTES % 44.3 % (20.0-50.0); MEAN CORPUSCULAR HEMOGLOBIN 31.6 pg (28.0-32.0); MEAN CORPUSCULAR VOLUME 92.8 fL (80.0-94.0); MEAN PLATELET VOLUME 7.9 fl (7.4-10.4); MONOCYTES % 10.9 % (2.0-8.0); NEUTROPHILS % 40.1 % (40.0-76.0); PLATELET 182 x1000/uL (130-400); RED BLOOD CELL COUNT 4.22 mill/uL (4.7-6.1); RED CELL DISTRIBUTION WIDTH 14.4 % (11.6-14.6)
[2020-07-20 14:02] LABS: CHLORIDE 100 mEq/L (98-107)
[2020-07-20 14:03] LABS: INR 1.1; PROTHROMBIN TIME 11.7 sec (9.6-11.0)
[2020-07-20 14:10] LABS: ETHANOL BLOOD 65 mg/dL
[2020-07-20 15:49] LABS: CLARITY URINE CLEAR (CLEAR); COLOR URINE YELLOW (YELLOW); KETONES URINE NEGATIVE (NEGATIVE); LEUKOCYTE ESTERASE URINE NEGATIVE (NEGATIVE); NITRITE URINE NEGATIVE (NEGATIVE); OCCULT BLOOD URINE NEGATIVE (NEGATIVE); PROTEIN URINE NEGATIVE (NEGATIVE); SPECIFIC GRAVITY URINE 1.005 (1.005-1.030); UROBILINOGEN URINE 0.2 E.U./dL (0.2-1.0)
[2020-07-20] MEDS ORDERED: ALBUTEROL (0.083%) 2.5MG/3ML NEB HHN STA (16:10)
[2020-07-20] MEDS ORDERED: HYDR-4001 MT (16:12)
[2020-07-20] MEDS ORDERED: HYDROCODONE/ACETAMINOPHEN 5/325MG TABLET PO ONE (16:15)
[2020-07-20 16:36] LABS: *AMPHETAMINES SCREEN URINE NEGATIVE (NEGATIVE)
[2020-07-20 16:37] LABS: *BARBITURATES SCREEN URINE NEGATIVE (NEGATIVE); *BENZODIAZEPINES SCREEN URINE NEGATIVE (NEGATIVE); *COCAINE SCREEN URINE PRESUMTIVE POSITIVE (NEGATIVE); METHADONE URINE SCREEN NEGATIVE (NEGATIVE)
[2020-07-20 16:38] LABS: OPIATES URINE SCREEN NEGATIVE (NEGATIVE); PHENCYCLIDINE URINE SCREEN NEGATIVE (NEGATIVE)
[2020-07-20 16:39] LABS: CANNABINOID URINE SCREEN PRESUMTIVE POSITIVE (NEGATIVE)
[2020-07-20 17:13] VITALS: BP 110/60
== END 2020-07-20 17:14 | disposition home or self-care (01) ==
LOC: ER 12:40 → CANBEDREQ 17:06 → ER 17:14
DX: R10.32 Left lower quadrant pain (principal); R06.2 Wheezing; I48.91 Unspecified atrial fibrillation; J44.1 Chronic obstructive pulmonary disease with (acute) exacerbation; E78.00 Pure hypercholesterolemia, unspecified; E11.9 Type 2 diabetes mellitus without complications; I10 Essential (primary) hypertension; Z88.8 Allergy status to other drugs, medicaments and biological substances
CPT/HCPCS: 36415; 71045; 74176; 80053; 80305; 80320; 81003; 83690; 83880; 84484; 85025; 85610; 94640; 99285; Z7610; G0480

== ENCOUNTER 2020-08-29 15:11 | Emergency (ER) | payer MEDICAID ==
[~2020-08-29] VITALS: Ht 165.1 cm; Wt 65.0 kg
[~2020-08-29 15:11] MED LIST changes: +APIX2.5T PO
[2020-08-29 19:17] LABS: BASOPHILS % 0.9 % (0.0-2.0); EOSINOPHILS % 4.5 % (0.0-5.0); HEMOGLOBIN. 13.7 g/dL (14.0-18.0); LYMPHOCYTES % 41.3 % (20.0-50.0); MEAN CORPUSCULAR HEMOGLOBIN 32.3 pg (28.0-32.0); MEAN CORPUSCULAR VOLUME 91.7 fL (80.0-94.0); MONOCYTES % 9.9 % (2.0-8.0); NEUTROPHILS % 43.4 % (40.0-76.0); PLATELET 164 x1000/uL (130-400); RED BLOOD CELL COUNT 4.25 mill/uL (4.7-6.1); RED CELL DISTRIBUTION WIDTH 14.1 % (11.6-14.6)
[2020-08-29 19:23] LABS: CHLORIDE 102 mEq/L (98-107)
[2020-08-29] MEDS ORDERED: DOXY100T2 MT (20:02)
[2020-08-29] MEDS ORDERED: DOXYCYCLINE HYCLATE 100MG CAPSULE PO ONE (20:15)
[2020-08-29] MEDS ORDERED: ACETAMINOPHEN 325MG TABLET PO ONE (20:45)
[2020-08-29 21:11] VITALS: BP 109/68
== END 2020-08-29 21:12 | disposition home or self-care (01) ==
LOC: ER 15:11
DX: T81.41XA Infection following a procedure, superficial incisional surgical site, initial encounter (principal); E11.9 Type 2 diabetes mellitus without complications; I48.91 Unspecified atrial fibrillation; J44.9 Chronic obstructive pulmonary disease, unspecified; E78.00 Pure hypercholesterolemia, unspecified; M19.90 Unspecified osteoarthritis, unspecified site; I11.0 Hypertensive heart disease with heart failure; I50.9 Heart failure, unspecified; Z79.01 Long term (current) use of anticoagulants; Y83.8 Other surgical procedures as the cause of abnormal reaction of the patient, or of later complication, without mention of misadventure at the time of the procedure; Y92.018 Other place in single-family (private) house as the place of occurrence of the external cause
CPT/HCPCS: 36415; 71045; 80053; 83880; 84484; 85025; 93005; 99285

== ENCOUNTER 2024-04-17 11:16 | Emergency (ER) | payer MEDICAID ==
[~2024-04-17] VITALS: Ht 172.7 cm; Wt 75.0 kg
[~2024-04-17 11:16] MED LIST changes: +DILT30TA37 PO; -DILT30TA38 PO; +DOXY100T2 MT
[2024-04-17 11:25] VITALS: O2SAT 97
[2024-04-17] MEDS ORDERED: TETANUS, DIPHTHERIA, PERTUSSIS VAC/PF 0.5ML (>10YR OLD) IM ONE (13:15)
[2024-04-17 13:59] LABS: BASOPHILS % 1.2 % (0.0-2.0); EOSINOPHILS % 13.8 % (0.0-5.0); HEMATOCRIT. 39.6 % (42.0-52.0); HEMOGLOBIN. 13.6 g/dL (14.0-18.0); LYMPHOCYTES % 34.2 % (20.0-50.0); MEAN CORPUSCULAR HGB CONC 34.3 g/dL (31.0-37.0); MEAN CORPUSCULAR VOLUME 99.3 fL (80.0-94.0); MEAN PLATELET VOLUME 8.4 fl (7.4-10.4); MONOCYTES % 10.8 % (2.0-8.0); PLATELET 143 x1000/uL (130-400); RED BLOOD CELL COUNT 3.99 mill/uL (4.7-6.1); RED CELL DISTRIBUTION WIDTH 17.7 % (11.6-14.6); WHITE BLOOD COUNT 7.3 x1000/uL (4.5-11.0)
[2024-04-17 14:31] LABS: CHLORIDE 98 mEq/L (98-107); SODIUM 135 mEq/L (136-145)
[2024-04-17 14:32] LABS: CARBON DIOXIDE 32 mEq/L (21-32)
[2024-04-17 14:33] LABS: CALCIUM 9.2 mg/dL (8.7-10.4)
[2024-04-17 14:37] LABS: CREATININE 0.5 mg/dL (0.6-1.3); GLUCOSE 98 mg/dL (70-105)
[2024-04-17 14:41] LABS: UREA NITROGEN BLOOD < 5 mg/dL (9-23)
[2024-04-17] MEDS ORDERED: DOXY100C74 MT (14:47)
[2024-04-17] MEDS ORDERED: CEPH500T MT (14:47)
[2024-04-17] MEDS: TETANUS, DIPHTHERIA, PERTUSSIS VAC/PF 0.5ML (>10YR OLD) IM ONE (14:58)
[2024-04-17 15:21] VITALS: BP 128/81; PULSE 75; RESP 18; TEMP 36.89184; O2SAT 100
== END 2024-04-17 15:25 | disposition home or self-care (01) ==
LOC: ER 11:16
DX: S93.401A Sprain of unspecified ligament of right ankle, initial encounter (principal); L03.115 Cellulitis of right lower limb; E11.9 Type 2 diabetes mellitus without complications; E78.00 Pure hypercholesterolemia, unspecified; I10 Essential (primary) hypertension; I48.91 Unspecified atrial fibrillation; J44.9 Chronic obstructive pulmonary disease, unspecified; Z79.899 Other long term (current) drug therapy; Z86.718 Personal history of other venous thrombosis and embolism; Z98.890 Other specified postprocedural states; X58.XXXA Exposure to other specified factors, initial encounter; Y93.89 Activity, other specified; Y92.89 Other specified places as the place of occurrence of the external cause; Y99.8 Other external cause status
CPT/HCPCS: 36415; 73560; 73590; 73610; 80048; 85025; 90471; 90715; 99284

== ENCOUNTER 2024-04-21 10:23 | Emergency (ER) | payer MEDICAID ==
[~2024-04-21] VITALS: Ht 172.7 cm; Wt 70.0 kg
[~2024-04-21 10:23] MED LIST changes: +CEPH500T MT; +DOXY100C74 MT
[2024-04-21 10:34] VITALS: O2SAT 99
[2024-04-21] MEDS ORDERED: ACETAMINOPHEN 325MG TABLET PO ONE (11:15)
[2024-04-21] MEDS ORDERED: TETANUS, DIPHTHERIA, PERTUSSIS VAC/PF 0.5ML (>10YR OLD) IM ONE (11:15)
[2024-04-21] MEDS: ACETAMINOPHEN 500MG TABLET PO NR (13:18)
[2024-04-21] MEDS: TETANUS, DIPHTHERIA, PERTUSSIS VAC/PF 0.5ML (>10YR OLD) IM ONE (13:20)
[2024-04-21 14:06] VITALS: BP 136/86; PULSE 68; RESP 16; TEMP 37.00296; O2SAT 99
== END 2024-04-21 14:14 | disposition home or self-care (01) ==
LOC: ER 10:23
DX: M79.604 Pain in right leg (principal); I10 Essential (primary) hypertension; E78.00 Pure hypercholesterolemia, unspecified; E11.9 Type 2 diabetes mellitus without complications; J44.9 Chronic obstructive pulmonary disease, unspecified; I48.91 Unspecified atrial fibrillation; Z88.8 Allergy status to other drugs, medicaments and biological substances; Z79.899 Other long term (current) drug therapy
CPT/HCPCS: 72170; 73560; 73590; 73600; 73620; 90715; 90471; 99284; Z7610 ×3

== ENCOUNTER 2024-05-29 08:39 | Emergency (ER) | payer MEDICAID ==
[~2024-05-29] VITALS: Ht 177.8 cm; Wt 83.9 kg
[~2024-05-29 08:39] MED LIST changes: -APIX2.5T PO; +COR6 MT; -DILT30TA37 PO; -DOXY100C74 MT; -DOXY100T2 MT; +FERR324T4 MT; +IBUP-2029 PO; +MULT-1146 MT; +SULF1TAB48 PO
[2024-05-29 08:49] VITALS: O2SAT 94
[2024-05-29 10:02] LABS: HEMATOCRIT. 40.3 % (42.0-52.0); HEMOGLOBIN. 13.9 g/dL (14.0-18.0); MEAN CORPUSCULAR HEMOGLOBIN 33.9 pg (28.0-32.0); MEAN CORPUSCULAR HGB CONC 34.6 g/dL (31.0-37.0); MEAN CORPUSCULAR VOLUME 97.8 fL (80.0-94.0); MEAN PLATELET VOLUME 7.7 fl (7.4-10.4); PLATELET 186 x1000/uL (130-400); RED BLOOD CELL COUNT 4.12 mill/uL (4.7-6.1); RED CELL DISTRIBUTION WIDTH 16.7 % (11.6-14.6)
[2024-05-29 10:17] LABS: CHLORIDE 100 mEq/L (98-107); POTASSIUM 4.2 mEq/L (3.5-5.1); SODIUM 135 mEq/L (136-145)
[2024-05-29 10:19] LABS: CALCIUM 9.1 mg/dL (8.7-10.4); CARBON DIOXIDE 29 mEq/L (21-32)
[2024-05-29 10:23] LABS: CREATININE 0.7 mg/dL (0.6-1.3); GLUCOSE 88 mg/dL (70-105)
[2024-05-29 10:26] LABS: DIFFERENTIAL COMMENT 1
[2024-05-29 10:59] LABS: UREA NITROGEN BLOOD < 5 mg/dL (9-23)
[2024-05-29] MEDS ORDERED: CEPH500C2 MT (11:00)
[2024-05-29] MEDS ORDERED: SULF1TAB48 MT (11:00)
[2024-05-29 12:16] VITALS: BP 95/58; PULSE 73; RESP 12; TEMP 36.94740; O2SAT 73
[2024-05-29 18:31] LABS: PLATELET ESTIMATE NORMAL
== END 2024-05-29 12:20 | disposition home or self-care (01) ==
LOC: ER 08:39
DX: L03.115 Cellulitis of right lower limb (principal); I48.91 Unspecified atrial fibrillation; E78.00 Pure hypercholesterolemia, unspecified; E11.9 Type 2 diabetes mellitus without complications; I10 Essential (primary) hypertension; J44.9 Chronic obstructive pulmonary disease, unspecified; Z79.899 Other long term (current) drug therapy; Z88.6 Allergy status to analgesic agent
CPT/HCPCS: 36415; 80048; 85025; 99283

== ENCOUNTER 2024-08-14 09:05 | Emergency (ER) | payer MEDICAID ==
[~2024-08-14] VITALS: Ht 174 cm; Wt 70.5 kg
[~2024-08-14 09:05] MED LIST changes: -ATOR-2 MT; +ATOR-2 PO; -CEPH500T MT; +CIPR-263 PO; +DOCU-422 PO; +ERGO1250 PO; -FERR324T4 MT; -IBUP-2029 PO; -NICO-645 TP; +NICO-786 TD; -SULF1TAB48 PO
[2024-08-14 09:19] VITALS: O2SAT 96
[2024-08-14 09:50] LABS: HEMATOCRIT. 41.7 % (42.0-52.0); HEMOGLOBIN. 13.8 g/dL (14.0-18.0); MEAN CORPUSCULAR HEMOGLOBIN 30.9 pg (28.0-32.0); MEAN CORPUSCULAR VOLUME 93.4 fL (80.0-94.0); MEAN PLATELET VOLUME 7.5 fl (7.4-10.4); PLATELET 184 x1000/uL (130-400); RED BLOOD CELL COUNT 4.47 mill/uL (4.7-6.1); RED CELL DISTRIBUTION WIDTH 18.1 % (11.6-14.6); WHITE BLOOD COUNT 14.4 x1000/uL (4.5-11.0)
[2024-08-14 09:52] LABS: DIFFERENTIAL COMMENT 1
[2024-08-14 10:00] LABS: D-DIMER 1.58 mg/L FEU (<0.50); INR 1.1; PROTHROMBIN TIME 11.8 sec (9.6-11.0)
[2024-08-14 10:09] LABS: CHLORIDE 98 mEq/L (98-107); SODIUM 137 mEq/L (136-145)
[2024-08-14 10:10] LABS: CALCIUM 9.4 mg/dL (8.7-10.4); CARBON DIOXIDE 30 mEq/L (21-32)
[2024-08-14 10:15] LABS: CREATININE 0.6 mg/dL (0.6-1.3); GLUCOSE 80 mg/dL (70-105); UREA NITROGEN BLOOD 7 mg/dL (9-23)
[2024-08-14 10:16] LABS: ETHANOL BLOOD 42 mg/dL (<10)
[2024-08-14 10:26] LABS: TROPONIN I HIGH SENSITIVITY < 4 ng/L (3.0-53)
[2024-08-14 10:48] LABS: ANISOCYTOSIS 2+; PLATELET ESTIMATE NORMAL
[2024-08-14 12:57] LABS: *AMPHETAMINES SCREEN URINE NEGATIVE (NEGATIVE); *BARBITURATES SCREEN URINE NEGATIVE (NEGATIVE); *BENZODIAZEPINES SCREEN URINE NEGATIVE (NEGATIVE); *COCAINE SCREEN URINE PRESUMPTIVE POSITIVE (NEGATIVE); METHADONE URINE SCREEN NEGATIVE (NEGATIVE); OPIATES URINE SCREEN NEGATIVE (NEGATIVE); PHENCYCLIDINE URINE SCREEN NEGATIVE (NEGATIVE)
[2024-08-14 12:58] LABS: CANNABINOID URINE SCREEN PRESUMPTIVE POSITIVE (NEGATIVE); ECSTASY MDMA SCREEN URINE NEGATIVE (NEGATIVE)
[2024-08-14] MEDS ORDERED: ALBU18HF2 IH (12:58)
[2024-08-14] MEDS ORDERED: P20 MT (12:58)
[2024-08-14 13:30] VITALS: BP 105/74; PULSE 71; RESP 16; TEMP 36.5; O2SAT 96
== END 2024-08-14 13:52 | disposition home or self-care (01) ==
LOC: ER 09:05 → CANBEDREQ 13:18 → ER 13:52
DX: J44.9 Chronic obstructive pulmonary disease, unspecified (principal); F10.90 Alcohol use, unspecified, uncomplicated; F17.210 Nicotine dependence, cigarettes, uncomplicated; I10 Essential (primary) hypertension; E78.00 Pure hypercholesterolemia, unspecified; E11.9 Type 2 diabetes mellitus without complications; I48.91 Unspecified atrial fibrillation; Z88.9 Allergy status to unspecified drugs, medicaments and biological substances; Z79.899 Other long term (current) drug therapy; Z98.890 Other specified postprocedural states; Y90.2 Blood alcohol level of 40-59 mg/100 ml
CPT/HCPCS: 80305; 80048; 80320; 83880; 85025; 85379; 85610; 84484; 36415; 71045; 93005; 99285; Z7610; G0480

== ENCOUNTER 2024-08-22 09:14 | Emergency (ER) | payer MEDICAID ==
[~2024-08-22] VITALS: Ht 172.7 cm; Wt 70.7 kg
[~2024-08-22 09:14] MED LIST changes: +ALBU18HF2 IH; +P20 MT
[2024-08-22 09:24] VITALS: O2SAT 100
[2024-08-22 09:31] VITALS: BP 114/72; PULSE 91; RESP 16; TEMP 37; O2SAT 94
[2024-08-22 10:00] LABS: HEMATOCRIT. 41.3 % (42.0-52.0); HEMOGLOBIN. 13.9 g/dL (14.0-18.0); MEAN CORPUSCULAR HEMOGLOBIN 31.3 pg (28.0-32.0); MEAN CORPUSCULAR HGB CONC 33.5 g/dL (31.0-37.0); MEAN CORPUSCULAR VOLUME 93.4 fL (80.0-94.0); MEAN PLATELET VOLUME 7.5 fl (7.4-10.4); PLATELET 216 x1000/uL (130-400); RED BLOOD CELL COUNT 4.43 mill/uL (4.7-6.1); WHITE BLOOD COUNT 12.6 x1000/uL (4.5-11.0)
[2024-08-22 10:13] LABS: CARBON DIOXIDE 32 mEq/L (21-32); CHLORIDE 95 mEq/L (98-107); POTASSIUM 3.8 mEq/L (3.5-5.1); SODIUM 133 mEq/L (136-145)
[2024-08-22 10:14] LABS: CALCIUM 9.5 mg/dL (8.7-10.4)
[2024-08-22 10:19] LABS: CREATININE 0.6 mg/dL (0.6-1.3); GLUCOSE 90 mg/dL (70-105); UREA NITROGEN BLOOD 6 mg/dL (9-23)
[2024-08-22 10:21] LABS: DIFFERENTIAL COMMENT 1; TROPONIN I HIGH SENSITIVITY < 4 ng/L (3.0-53)
[2024-08-22] MEDS: HYDROCODONE/ACETAMINOPHEN 5/325MG TABLET PO NR (10:42)
[2024-08-22 11:17] LABS: ANISOCYTOSIS 1+; PLATELET ESTIMATE NORMAL
[2024-08-22] MEDS ORDERED: AZIT250T12 MT (12:01)
== END 2024-08-22 12:49 | disposition home or self-care (01) ==
LOC: ER 10:01
DX: R07.89 Other chest pain (principal); R91.1 Solitary pulmonary nodule; I10 Essential (primary) hypertension; E11.9 Type 2 diabetes mellitus without complications; E78.00 Pure hypercholesterolemia, unspecified; M19.90 Unspecified osteoarthritis, unspecified site; J44.9 Chronic obstructive pulmonary disease, unspecified; I48.91 Unspecified atrial fibrillation; F10.90 Alcohol use, unspecified, uncomplicated; Z98.890 Other specified postprocedural states; Z79.899 Other long term (current) drug therapy; Z88.8 Allergy status to other drugs, medicaments and biological substances; Y90.9 Presence of alcohol in blood, level not specified
CPT/HCPCS: 36415; 71045; 71250; 80048; 84484; 85025; 93005; 99285